=== PATIENT | female | born 1995 | race Hispanic/Latino ===

== ENCOUNTER 2017-11-18 15:43 | Emergency (ER) | payer SELFPAY ==
[2017-11-18] MEDS ORDERED: Adacel (T-DAP) 0.5 ML VIAL ONE (16:14)
[2017-11-18] MEDS ORDERED: Lidocaine 1% PF 5 ML VIAL ONE (16:17)
--- NOTE | 2017-11-18 17:10 | RAD ---
RIGHT KNEE FOUR VIEWS: 11/18/17 HISTORY: Right knee pain, laceration. FINDINGS/IMPRESSION: No fracture or dislocation is seen. No radiopaque foreign body is identified. POS: [facility]
[2017-11-18] MEDS ORDERED: Bacitracin Zinc 1 Packet ONE (17:26)
== END 2017-11-18 17:40 | disposition home or self-care (01) ==
LOC: ERS 15:43
DX: S81.011A Laceration without foreign body, right knee, initial encounter (principal); W25.XXXA Contact with sharp glass, initial encounter
CPT/HCPCS: 12002; 90471; 90715; J2001

== ENCOUNTER 2018-11-08 22:10 | Emergency (ER) | payer SELFPAY ==
[2018-11-08] MEDS ORDERED: Proparacaine 0.5% Opth 15 ML BOT ONE (23:47)
[2018-11-08] MEDS ORDERED: Fluorescein Opthalmic Strip ONE (23:47)
== END 2018-11-09 00:28 | disposition home or self-care (01) ==
LOC: ERS 22:10
DX: S05.02XA Injury of conjunctiva and corneal abrasion without foreign body, left eye, initial encounter (principal); X10.2XXA Contact with fats and cooking oils, initial encounter; Y93.G3 Activity, cooking and baking
CPT/HCPCS: 99283